=== PATIENT | female | born 1980 | race Caucasian/White ===

== ENCOUNTER 2021-04-19 21:44 | Emergency (ER) | payer SELFPAY ==
[~2021-04-19] VITALS: Ht 165.1 cm; Wt 108.9 kg
[2021-04-19 21:58] VITALS: BP 136/78
== END 2021-04-19 23:50 | disposition left against medical advice (07) ==
LOC: ER 21:44 → EDBD 21:44 → ER 23:50
DX: R07.89 Other chest pain (principal); R06.02 Shortness of breath; R11.0 Nausea; Z53.21 Procedure and treatment not carried out due to patient leaving prior to being seen by health care provider
CPT/HCPCS: 93005